=== PATIENT | female | born 1985 | race Caucasian/White ===

== ENCOUNTER 2020-01-17 07:25 | Emergency (ER) | payer MEDICAID ==
[~2020-01-17] VITALS: Ht 157.5 cm; Wt 78.9 kg
[2020-01-17 07:48] VITALS: Ht 157.5 cm; Wt 78.9 kg
[2020-01-17 08:52] LABS: BASOPHIL % 1.1 % (0-2); PLATELET COUNT 278 x10^3mcL (130-400); RED CELL DISTRIBUTION WIDTH 12.8 % (11.5-14.5)
[2020-01-17 08:58] LABS: CARBON DIOXIDE 27.4 mmol/L (21-32); CHLORIDE SERUM 107 mmol/L (98-107); CREATININE SERUM 0.8 mg/dL (0.6-1.0); GFR1 > 60 mL/min; GLUCOSE SERUM 96 mg/dL (74-106); POTASSIUM SERUM 3.8 mmol/L (3.5-5.1); SODIUM SERUM 142 mmol/L (136-145)
[2020-01-17 09:03] LABS: ALKALINE PHOSPHATASE 69 U/L (46-116); ALT/SGPT 27 U/L (14-59); AST/SGOT 16 U/L (15-37); BILIRUBIN TOTAL 1.1 mg/dL (0.20-1.00); TOTAL PROTEIN, SERUM 7.6 g/dL (6.4-8.2)
[2020-01-17 09:40] VITALS: BP 109/62
== END 2020-01-17 09:40 | disposition home or self-care (01) ==
LOC: ED 07:25
PROVIDERS: Emergency Medicine
DX: R07.9 Chest pain, unspecified (principal)
CPT/HCPCS: 36415; Q0092